=== PATIENT | female | born 1995 | race Hispanic/Latino ===

== ENCOUNTER 2017-10-05 18:55 | Emergency (ER) | payer BC ==
[~2017-10-05] VITALS: Ht 152.4 cm; Wt 79.4 kg
[2017-10-05] MEDS ORDERED: PYRIDIUM200 MG PO (20:22)
[2017-10-05] MEDS ORDERED: MACROBID 100 M100 MG PO (20:22)
== END 2017-10-05 20:38 | disposition home or self-care (01) ==
LOC: FSED 18:55
DX: R30.0 Dysuria (principal); R10.30 Lower abdominal pain, unspecified; N30.91 Cystitis, unspecified with hematuria
CPT/HCPCS: 81025; 87086; 87186; 99282